=== PATIENT | male | born 1970 | race Hispanic/Latino ===

== ENCOUNTER → 2024-02-14 | Outpatient (REF) | payer BC ==
[~2024-02-14] MED LIST: CIPRO500 MG PO; DICYCLOMINE HCL20 MG PO; METRONIDAZOLE500 MG PO; ONDANSETRON ODT4 MG PO
== END ==
LOC: RAD 13:39
PROVIDERS: ATTEND Internal Medicine
DX: M25.561 Pain in right knee (principal); M25.562 Pain in left knee

== ENCOUNTER 2024-11-06 14:06 | Emergency (ER) | payer BC ==
[~2024-11-06] VITALS: Ht 188 cm; Wt 85.7 kg
[2024-11-06 14:20] VITALS: PULSE 73; RESP 18; TEMP 98.2
[2024-11-06] MEDS ORDERED: IOPAMIDOL 370 MG/ML 100 ML INFUS..BTL INJ ONE (15:11)
[2024-11-06] MEDS ORDERED: DICYCLOMINE HCL20 MG PO (15:50)
[2024-11-06] MEDS ORDERED: AUGMENTIN 500-1 EACH PO (15:50)
[2024-11-06 16:17] VITALS: BP 124/83; O2SAT 98
== END 2024-11-06 15:58 | disposition home or self-care (01) ==
LOC: FSED 14:17
DX: R10.32 Left lower quadrant pain (principal); I10 Essential (primary) hypertension; Z87.448 Personal history of other diseases of urinary system
CPT/HCPCS: 74177; 80053; 85025; 99283; Q9967